=== PATIENT | male | born 1970 | race Caucasian/White ===

== ENCOUNTER 2019-05-24 12:45 | Day surgery (SDC) | payer MEDICAID ==
[2019-05-16 09:55] LABS: BASOPHILS # (AUTO) 0.1 X10'3 (0-0.2); BASOPHILS % (AUTO) 0.6 % (0-1); EOSINOPHILS # (AUTO) 0.1 X10'3 (0-0.9); EOSINOPHILS % (AUTO) 1.1 % (0-6); LYMPHOCYTES # (AUTO) 2.4 X10'3 (1.1-4.8); LYMPHOCYTES % (AUTO) 24.5 % (21-51); MEAN CORPUSCULAR HEMOGLOBIN 29.2 PG (27.0-31.0); MEAN CORPUSCULAR HGB CONC 33.8 g/dL (33.0-36.5); MEAN CORPUSCULAR VOLUME 86.3 FL (78-98); MEAN PLATELET VOLUME 9.1 FL (7.4-10.4); MONOCYTES # (AUTO) 0.6 X10'3 (0-0.9); MONOCYTES % (AUTO) 6.5 % (2-12); NEUTROPHILS # (AUTO) 6.6 X10'3 (1.8-7.7); NEUTROPHILS % (AUTO) 67.3 % (42-75); PRE OP HEMATOCRIT 47.5 % (42.0-52.0); PRE OP HEMOGLOBIN 16.1 g/dL (14.0-17.9); PRE OP PLATELET COUNT 246 X10'3 (140-440); RED BLOOD COUNT 5.51 X10'6 (4.70-6.10); RED CELL DISTRIBUTION WIDTH 14.2 % (11.5-14.5)
[2019-05-16 10:12] LABS: ALBUMIN 3.8 G/DL (3.4-5.0); ALBUMIN/GLOBULIN RATIO 0.9 (1.1-1.5); ALKALINE PHOSPHATASE 83 IU/L (46-116); BLOOD UREA NITROGEN 15 MG/DL (7-18); BUN/CREATININE RATIO 18.1 (5.4-32.0); CALCIUM 9.3 MG/DL (8.5-10.1); CHLORIDE 105 MMOL/L (99-107); CREATININE 0.83 MG/DL (0.60-1.10); PRE OP ALT 32 U/L (30-65); PRE OP ANION GAP 6 (8-16); PRE OP AST 19 U/L (10-37); PRE OP BILIRUB, TOTAL 0.3 MG/DL (0.0-1.0); PRE OP GLUCOSE 97 MG/DL (70-104); PRE OP POTASSIUM 4.2 MMOL/L (3.4-5.1); PRE OP SODIUM 139 MMOL/L (135-145); TOTAL CARBON DIOXIDE 28.4 MMOL/L (24-32); eGFR > 90 ML/MIN
[2019-05-24] VITALS (8 sets, daily range): BP systolic 126–142; BP diastolic 69–79
[~2019-05-24] VITALS: Ht 177.8 cm; Wt 95.0 kg
[~2019-05-24 12:45] MED LIST: LEVO100T78 PO; LISI40TA4 PO; LOVA20TA2 PO; albuterol 2.5 MG/3 ML nebule NEB ONE; cefazolin/dext.iso 2gm/100ml 100 ML IV ONE; famotidine 20mg tablet PO ONE; ringers solution, lacted 1,000 ML IV SCH; vancomycin inj 1,500 MG in normal saline 300ml IV soln IV ONE
[2019-05-24] MEDS ORDERED: ringers solution, lacted 1,000 ML IV SCH (13:04)
[2019-05-24] MEDS ORDERED: labetalol 20mg/4ml (5mg/ml) syringe IV PRN (13:05)
[2019-05-24] MEDS ORDERED: ondansetron/PF 4mg/2ml inj IV PRN (13:05)
[2019-05-24] MEDS ORDERED: fentaNYL/PF 50MCG/1 ML 2ML syringe IV PRN ×2 (13:05)
[2019-05-24] MEDS ORDERED: morphine 4 MG/ML inj SYRINge IV PRN ×2 (13:05)
[2019-05-24] MEDS ORDERED: hydrALAZINE 20mg/ml inj. IV PRN (13:05)
[2019-05-24] MEDS ORDERED: triamcinolone acetonide 40mg/ml inj ONE (13:11)
[2019-05-24] MEDS ORDERED: BUPIVAcaine/PF 2.5 mg/ml (0.25%) 30ml vial ONE (13:11)
[2019-05-24] MEDS ORDERED: midazolam 2 mg/2 ml injection ONE (13:42)
[2019-05-24] MEDS ORDERED: fentaNYL/PF 50MCG/1 ML 2ML syringe ONE ×2 (13:42→13:56)
[2019-05-24] MEDS ORDERED: ondansetron/PF 4mg/2ml inj ONE (13:43)
[2019-05-24] MEDS ORDERED: sevoflurane 250ml liquid IH ONE (13:43)
[2019-05-24] MEDS ORDERED: propofol inj 20 ML IV ONE (13:52)
[2019-05-24] MEDS ORDERED: dexamethasone sod phosphate 4mg/ml inj. ONE (13:52)
[2019-05-24] MEDS ORDERED: LIDOcaine 2% (20mg/ml) 5ml vial ONE (13:52)
[2019-05-24] MEDS ORDERED: acetaminophen 1,000mg/100ml IV 100 ML IV ONE (14:07)
[2019-05-24] MEDS ORDERED: ketorolac trometh. 30mg/ml inj. ONE (14:18)
--- NOTE | 2019-05-24 14:35 | NUR ---
Received from OR via BED , accompanied by Anesthesiologist DR GREEN and report given by Anesthesiolgist. PATIENT WAKING UP, DENIES PAIN, V/S WNL, NEUROVASCULAR CHECKS INTACT, 20G PIV RUE , DRESSING TO LEFT KNEE CDI W/ COLD POWDER PACK AND W/ SCD ON.
--- NOTE | 2019-05-24 15:35 | NUR ---
PATIENT A&OX4, DENIES PAIN, V/S WNL, NEUROVASCULAR CHECKS INTACT, 20G PIV D/C WITH NO COMPLICATIONS OBSERVED , DRESSING TO LEFT KNEE CDI W/ COLD POWDER PACK , SCD OFF. I HAVE REVIEWED D/C INSTRUCTIONS WITH PATIENT AND FAMILY AND THEY HAVE VERBALIZED UNDERSTANDING. PATIENT D/C HOME WITH ALL BELONGINGS AND FAMILY GAVE TRANSPORT HOME.
== END 2019-05-24 15:35 | disposition home or self-care (01) ==
LOC: PAS 12:45
PROVIDERS: ATTEND Orthopaedic Surgery
DX: S83.232A Complex tear of medial meniscus, current injury, left knee, initial encounter (principal); S83.272A Complex tear of lateral meniscus, current injury, left knee, initial encounter; M94.262 Chondromalacia, left knee; I10 Essential (primary) hypertension; M17.0 Bilateral primary osteoarthritis of knee; E03.9 Hypothyroidism, unspecified; F17.210 Nicotine dependence, cigarettes, uncomplicated; E66.01 Morbid (severe) obesity due to excess calories; Z68.38 Body mass index [BMI] 38.0-38.9, adult; Z79.899 Other long term (current) drug therapy; Z98.890 Other specified postprocedural states; Z85.850 Personal history of malignant neoplasm of thyroid; Z72.89 Other problems related to lifestyle; X58.XXXA Exposure to other specified factors, initial encounter; Y93.89 Activity, other specified; Y92.89 Other specified places as the place of occurrence of the external cause; Y99.8 Other external cause status
CPT/HCPCS: 29873; 29879; 29880; 36415; 80053; 82948; 85025; 93005; J0131; J1100; J1885; J2001; J2250; J2405; J2704; J3010; J3301; J3370; J3490; A4215; A4618; A6250; A6449; A7000; J7120

== ENCOUNTER 2022-04-08 05:17 | Day surgery (SDC) | payer MEDICAID ==
[2022-04-06 09:36] LABS: ALANINE AMINOTRANSFERASE 39 U/L (12-78); ALBUMIN 3.8 G/DL (3.4-5.0); ALKALINE PHOSPHATASE 98 IU/L (46-116); ANION GAP 7 (8-16); ASPARTATE AMINO TRANSFERASE 22 U/L (10-37); BILIRUBIN,TOTAL 0.2 MG/DL (0.1-1.0); BLOOD UREA NITROGEN 13 MG/DL (7-18); BUN/CREATININE RATIO 15.3 (5.4-32.0); CALCIUM 9.2 MG/DL (8.5-10.1); CHLORIDE 103 MMOL/L (99-107); CREATININE 0.85 MG/DL (0.60-1.10); GLUCOSE 104 MG/DL (70-104); POTASSIUM 4.1 MMOL/L (3.5-5.1); SODIUM 137 MMOL/L (135-145); TOTAL CARBON DIOXIDE 26.8 MMOL/L (24-32); TOTAL PROTEIN 7.6 G/DL (6.4-8.2); eGFR > 90 ML/MIN
[2022-04-06 09:40] LABS: BASOPHILS % (AUTO) 0.4 % (0-1); EOSINOPHILS # (AUTO) 0.1 X10'3 (0-0.9); EOSINOPHILS % (AUTO) 0.9 % (0-6); HEMATOCRIT 46.6 % (42.0-52.0); LYMPHOCYTES # (AUTO) 2.8 X10'3 (1.1-4.8); LYMPHOCYTES % (AUTO) 30.7 % (21-51); MEAN CORPUSCULAR HEMOGLOBIN 29.3 PG (27.0-31.0); MEAN CORPUSCULAR HGB CONC 34.3 g/dL (33.0-36.5); MEAN CORPUSCULAR VOLUME 85.4 FL (78-98); MEAN PLATELET VOLUME 9.1 FL (7.4-10.4); MONOCYTES # (AUTO) 0.7 X10'3 (0-0.9); MONOCYTES % (AUTO) 7.2 % (2-12); NEUTROPHILS # (AUTO) 5.6 X10'3 (1.8-7.7); NEUTROPHILS % (AUTO) 60.8 % (42-75); PLATELET COUNT 251 X10'3 (140-440); RED BLOOD COUNT 5.46 X10'6 (4.70-6.10); RED CELL DISTRIBUTION WIDTH 14.3 % (11.5-14.5); WHITE BLOOD COUNT 9.2 X10'3 (4.5-11.0)
[~2022-04-08] VITALS: Ht 175.3 cm; Wt 97.5 kg
[2022-04-08] VITALS (8 sets, daily range): BP systolic 114–145; BP diastolic 72–92
[~2022-04-08 05:17] MED LIST changes: +LISI40TA13 PO; -LISI40TA4 PO; -albuterol 2.5 MG/3 ML nebule NEB ONE; -cefazolin/dext.iso 2gm/100ml 100 ML IV ONE; -famotidine 20mg tablet PO ONE; -vancomycin inj 1,500 MG in normal saline 300ml IV soln IV ONE
[2022-04-08] MEDS ORDERED: famotidine 20mg tablet PO ONE (05:30)
[2022-04-08] MEDS ORDERED: ceFAZolin inj. 2,000 MG in dextrose 5%-water 100 ML IV ONE (05:30)
[2022-04-08] MEDS ORDERED: ROPIVAcaine 0.5% (5mg/ml) 30ml vial ONE (06:43)
[2022-04-08] MEDS ORDERED: BUPIVAcaine/PF 2.5mg/ml (0.25%) 10ml vial ONE (06:44)
[2022-04-08] MEDS ORDERED: midazolam 1 mg/ML 2ml injection ONE (07:45)
[2022-04-08] MEDS ORDERED: fentaNYL/PF 50MCG/1 ML 2ML syringe ONE (07:45)
[2022-04-08] MEDS ORDERED: propofol inj 20 ML IV ONE (08:21)
--- NOTE | 2022-04-08 08:22 | NUR ---
Received from OR via [facility], accompanied by Anesthesiologist and report given by HARMONY Anesthesiologist. PATIENT WAKING UP, DENIES PAIN, V/S WNL, SCD ON, PIV 20G TO LUE, RIGHT WRIST DRESSING CDI. ICE AND ELEVATED RUE. Addendum: 04/08/22 at 0844 by Terrance Aguero RN Amended: Links added.
[2022-04-08] MEDS ORDERED: ringers solution, lacted 1,000 ML IV SCH (08:30)
[2022-04-08] MEDS ORDERED: ondansetron/PF 4mg/2ml inj IV PRN (08:30)
[2022-04-08] MEDS ORDERED: proCHLORperazine 10 MG/2 ml inj IV PRN (08:30)
[2022-04-08] MEDS ORDERED: morphine 4 MG/ML inj SYRINge IV PRN (08:30)
[2022-04-08] MEDS ORDERED: HYDROcodone/acetaminophen 10/325mg tab PO PRN (08:30)
[2022-04-08] MEDS ORDERED: meperidine/PF 25mg/ml syringe IV PRN ×3 (08:30)
[2022-04-08] MEDS ORDERED: morphine 2 MG/ML inj. syringe IV PRN (08:30)
--- NOTE | 2022-04-08 09:12 | NUR ---
ALL DISCHARGE CRITERIA HAS BEEN MET. VSS, PAIN AT A TOLERABLE LEVEL, ABLE TO SAFELY AMBULATE AND TRANSFER SELF. IV TAKEN OUT WITHOUT ANY COMPLICATIONS. ALL DISCHARGE INSTRUCTIONS COVERED WITH PATIENT AND ALL QUESTIONS ANSWERED. PATIENT TAKEN OUT VIA WHEELCHAIR WITH ALL BELONGINGS TO PERSONAL VEHICLE WHERE FAMILY DROVE PATIENT HOME. Addendum: 04/08/22 at 0918 by Terrance Aguero RN Amended: Links added.
== END 2022-04-08 09:12 | disposition home or self-care (01) ==
LOC: PAS 05:17 → PAS IN 08:30 → UNDOADMOB 08:30 → PAS 09:12 → UNDODISOB 09:15
PROVIDERS: ATTEND Orthopaedic Surgery
DX: G56.03 Carpal tunnel syndrome, bilateral upper limbs (principal); F17.210 Nicotine dependence, cigarettes, uncomplicated; E11.9 Type 2 diabetes mellitus without complications; I10 Essential (primary) hypertension; Z85.850 Personal history of malignant neoplasm of thyroid; Z79.899 Other long term (current) drug therapy; Z98.890 Other specified postprocedural states
CPT/HCPCS: 36415; 64721; 80053; 82948; 85025; A6222; J0690; J2250; J2704; J3010; J3490; J7030; J7060; J7120; Z7506; Z7512; A4215; A6449; A7000; G0378; J2795

== ENCOUNTER 2023-11-21 12:27 | Outpatient (CLI) | payer MEDICAID ==
[~2023-11-21 12:27] MED LIST changes: -ringers solution, lacted 1,000 ML IV SCH
== END 2023-11-21 23:59 | disposition home or self-care (01) ==
LOC: RAD 12:27
PROVIDERS: ATTEND Student in an Organized Health Care Education/Training Program
DX: M17.0 Bilateral primary osteoarthritis of knee (principal)
CPT/HCPCS: 73564